=== PATIENT | male | born 1985 | race Caucasian/White ===

== ENCOUNTER 2022-08-22 07:52 | Outpatient (CLI) | payer OTHER, SELFPAY ==
--- NOTE | 2022-08-22 08:06 | ECG_ITS ---
Measurements Intervals [place] Rate: 82 P: 29 W[place]: 192 QRS: 7 QRSD: 110 T: 35 QT: 371 QTc: 435 Interpretive Statements SINUS RHYTHM CONSIDER INFERIOR INFARCT, AGE INDETERMINATE BASELINE ARTIFACT- I, III, AVL ABNORMAL ECG NO PREVIOUS ECG AVAILABLE FOR COMPARISON Electronically Signed On 08-22-2022 8:38:19 CDT by Sharath Alba D.O.
== END 2022-08-22 07:53 | disposition home or self-care (01) ==
PROVIDERS: PCP Family Medicine; Visit Provider Surgery
DX: K43.9 Ventral hernia without obstruction or gangrene (principal); Z87.891 Personal history of nicotine dependence; Z01.818 Encounter for other preprocedural examination; R94.31 Abnormal electrocardiogram [ECG] [EKG]
CPT/HCPCS: 36415; 86850; 86900; 86901; 93005

== ENCOUNTER 2022-08-26 00:59 | Day surgery (SDC) | payer OTHER, SELFPAY ==
[2022-08-15 14:12] VITALS: BMI 42.6
--- NOTE | 2022-08-15 14:17 | PC.NURSE ---
Report to the Outpatient Waiting Room, entrance under the green pavilion located off [facility], at time 7:30 on date 08/26/22. Planned Procedure Time: 9:30. Time changes happen often and if your time is changed the preop area will call you the afternoon before. - You and your visitor will be asked to self-screen and do not enter if you have any COVID symptoms. - A mask is optional within the hospital at this time. Patients may have clear liquids (water, carbonated beverages, clear teas, apple juice) until 3 hours prior to surgery (6:30) with a maximum of 20 ounces. - No food from midnight until time of surgery Take the following medications with a SIP of water the morning of surgery: NONE DO NOT STOP ANY OF YOUR OTHER PRESCRIPTION MEDICATIONS PRIOR TO SURGERY ?EXCEPT THE FOLLOWING Medications to discontinue per physician: N/A Date to take last dose: N/A Please no make-up, nail martiniquais, hairspray, perfume, deodorant, or body powder the day of surgery. No jewelry (including any body piercings) or valuables the day of surgery, leave them at home. Please take a shower or bath the night before, or the morning of, surgery with an antibacterial soap (HIBICLENS). Wear comfortable, loose fitting clothing. - Jewelry must be removed prior to entering the operating room. Rings and piercings that are not removed may be cut off. - The hospital will not accept responsibility for valuables. - Please leave all valuables, including medications, at home the day of surgery. If you are going home after surgery, a licensed driver's education instructor must drive you home. - NO public transportation without another adult if you receive anesthesia. - We recommend that an adult stay with you for 24 hours following discharge. - We also recommend that you do not drive, make important decision, drink alcoholic beverages, or take any drugs that were not prescribed by your health care provider for at least 24 hours after your discharge time. Follow any additional instructions given to you from your surgeon. If you or anyone in your household have experienced Covid symptoms in the past week, please notify your surgeon or the nurse liaison at the phone number below for possible testing. Telephone instructions given to PT - SEN WINTER and asked if any additional questions and then verbalized understanding. Patient advised to call surgeon office or pre surgery nurse liaison [phone] if any additional questions.
--- NOTE | 2022-08-25 15:16 | P.PNAN_ITS ---
Anes - Initial Pre Proc Eval Procedure: Operation Date: 08/26/22 09:30 Proposed Procedures p Laparoscopic Ventral Hernia Repair with Mesh, Davinci Assisted - Barak Field DO Date/Time: 08/25/22 15:16 Surgeon: Barak Field DO Pre Op Diagnosis: Ventral Hernia Patient Data Age: 37 Gender: M Height: 1.93 m Weight: 158.8 kg Allergies Allergy/AdvReac Type Severity Reaction Status Date / Time No Known Allergies Allergy Mild Verified 08/26/22 07:39 Home Medications Medication Instructions Recorded Confirmed Type testosterone 100 mg/mL 100 mg IM 2XW 08/26/22 08/26/22 History intramuscular suspension Patient hx anesthesia problems: none Family hx anesthesia problems: none Results Review: All pre-operative results and documents have been reviewed as part of the pre- operative evaluation. [facility] Past Medical History Medical History (Updated 08/25/22 @ 15:16 by Jeffrey Messina MD) Low testosterone Obesity, morbid, BMI 40.0-49.9 Surgical History Surgical History (Updated 08/08/22 @ 08:24 by JING Leo) History of arthroplasty of left knee Hx of hand surgery Family History Family History (Updated 08/08/22 @ 08:24 by JING Leo) Other Diabetes mellitus Heart disease Social History Social History (Updated 08/08/22 @ 08:25 by JING Leo) Smoking packs per day: 2.5 Smoking cigarettes per day: 50.0 Years smoked: 10 Smoking pack-years: 25.00 Smoking status: Former smoker Tobacco type: cigarettes Smokeless tobacco user: chewing tobacco Smoking end date: 02/09/18 Alcohol intake: never Drinks per week: 2 Substance use: never Substance use type: does not use Living arrangements: with family Occupation/Education: occupation Gender identity (if verbalized by the patient): Male Spiritual care concerns: No Anes - Eval Final PreProcedure Day of Procedure 08/25/22 15:16 Patient weight: morbidly obese Heart: regular rate and rhythm Lungs: clear to auscultation and normal air movement Airway: Mallampati scale class II Neurological: alert and oriented Last oral intake: >/= 8 hours ASA classification: III Emergent: no Anesthetic plan: proceed Anesthesia type and monitoring: general ETT Results Review: All pre-operative results and documents have been reviewed as part of the pre- operative evaluation. Informed Consent: The patient's anesthetic plan and its attendant risks and benefits were discussed with the patient/family/POA. Questions were solicited and answers provided to the satisfaction of the patient/family/POA.
[2022-08-26] VITALS (7 sets, daily range): BP systolic 114–175; BP diastolic 53–87; PULSE 80–98; RESP 16–22; TEMP 36.3–36.4; O2SAT 93–96
[2022-08-26] MEDS: ACETAMINOPHEN 500 MG TABLET 1000 MG PO (07:55)
[2022-08-26] MEDS: LACTATED RINGERS 1,000 ML 30 ML IV CONT ×2 (08:00→12:01)
[2022-08-26] MEDS: KETOROLAC 15 MG/ML VIAL (*BKC) IV PUSH (08:57)
--- NOTE | 2022-08-26 09:16 | WPDHPUPDATE1 ---
History and Physical Update Update Date/Time: 08/26/22 09:16 History and Physical has been reviewed, including an updated exam of the patient. There are NO changes in the patient's condition. Risks, benefits, and alternatives have been discussed and questions answered. Patient agrees to proceed with procedure.
[2022-08-26] MEDS: ceFAZolin 3 GM/D5W 100 ML 100 ML IVPB (09:44)
[2022-08-26] MEDS: BUPIVACAINE/EPINEPHRINE 0.5% 10 ML VIAL 30 ML INFILTRATE (10:22)
--- NOTE | 2022-08-26 11:43 | W.PM.PROC2 ---
Procedure Note - Detailed Date of Procedure 08/26/22 Pre-op Diagnosis Ventral Hernia Post-op Diagnosis Other (3 cm incarcerated ventral hernia) Procedure Performed Laparoscopic 3 cm incarcerated ventral hernia repair with mesh, da Bell assisted Surgeon Barak Field, Anesthesia General and Local (Exparel) Indications This is a 37-year-old man who presented to the office with complaints of a bulge just above his umbilicus. This had been tender over the past several months especially with wearing his work belt and vest. He denied any change in bowel habits. He was found to have a 2-3 cm hernia just above the umbilicus on exam. Discussions were made with the patient about treatment options and decision was made to proceed with robotic assisted laparoscopic ventral hernia repair with mesh. Findings Laparoscopic incarcerated 3 cm ventral hernia repair was performed. The patient was found to have a supraumbilical ventral hernia measuring 3 cm. There was preperitoneal fat incarcerated within the hernia defect. A robotic transabdominal preperitoneal approach was utilized for repair. Once a wide enough preperitoneal pocket was created and the incarcerated contents were reduced, I then repaired the hernia defect using 1-Stratafix running absorbable suture. Then placed a 15 cm x 10 cm Bard soft mesh within the preperitoneal pocket and secured this to the abdominal wall using 3-0 Vicryl simple interrupted sutures. No specimens were obtained for pathology. Description of Procedure Procedure as well as risks, benefits, and alternatives were discussed with the patient. Written consent was obtained and placed in chart prior to procedure. Patient was brought back to surgical suite. He was placed supine on operating table. Time-out was done to confirm patient and procedure. He was then intubated by the anesthesia department. A bump was placed under his left hip, and the bed was flexed slightly to extend the space between his costal margin and iliac crest. His abdomen was prepped and draped in sterile fashion using chlorhexidine prep. A 5 millimeter incision was made in the left upper quadrant, and a 5 millimeter Optiview trocar was advanced through the abdominal layers under direct visualization. Once inside the abdominal cavity, carbon dioxide insufflation was used to create a pneumoperitoneum. His abdomen was inspected. An 8 millimeter incision was made in the left lower quadrant, and an 8 millimeter robotic trocar was placed under direct visualization. Another 8 millimeter incision was made in the left lateral abdomen, and an 8 millimeter robotic trocar was placed under direct visualization. 0.5% bupivacaine with epinephrine was infiltrated locally around each of the port sites. The 5 millimeter port was removed, and this was replaced with another 8 mm robotic port. The robotic arms were brought up to the patient's bedside and secured to the ports. The camera and instruments were inserted, and I then moved over to the robotic console and took control of the camera and instruments. After careful thorough inspection of the abdominal cavity, I began my dissection at the hernia. A preperitoneal pocket was started in the left upper quadrant using scissors with electrocautery. I extended this caudally to create a wide enough pocket for mesh placement. Pocket was then extended medially towards the hernia defect. The incarcerated contents were reduced and then the preperitoneal pocket was extended to the right lateral side wide enough to allow for mesh placement. I then measured the hernia size. The hernia measured 3 cm. The fascia was closed using an 1-Stratafix running suture in a vertical fashion. A Bard soft mesh 15 cm x 10 cm was then placed within the preperitoneal pocket. This was oriented vertically with the mesh centered on the hernia defect. The mesh was then secured to the abdominal wall at the center in 4 corners using 3-0 Vicryl simple interrupt
== END 2022-08-26 13:36 | disposition home or self-care (01) ==
PROVIDERS: PCP Family Medicine; Visit Provider Surgery
PROC: (CPT 49594; principal; 2022-08-26 09:30)
DX: K43.6 Other and unspecified ventral hernia with obstruction, without gangrene (principal); E29.1 Testicular hypofunction; F17.220 Nicotine dependence, chewing tobacco, uncomplicated; E66.01 Morbid (severe) obesity due to excess calories; Z68.42 Body mass index [BMI] 45.0-49.9, adult
CPT/HCPCS: 49594; S2900; 36415; 86850; 86900; 86901; 93005; A9270; C1781; J0330; J0690; J1100; J1885; J2250; J2371; J2405; J2704; J3010; J7030; J7120